=== PATIENT | female | born 1935 ===

== ENCOUNTER 2018-01-31 16:00 | Emergency (ER) | payer OTHER ==
[~2018-01-31] VITALS: Ht 152.4 cm; Wt 59.0 kg
[~2018-01-31 16:00] MED LIST: ASA325 M1 PO; CARDURA XL4 MG/BOTTL; COZAAR100 MG; DOLOGEN CAPLET1 EACH PO; DOXAZOSIN MESYLA4 MG; ENALAPRIL MALEA20 MG PO; GLIPIZIDE10 MG; GLIPIZIDE5 MG PO; HYDRALAZINE HCL25 MG; INTESTINEX680 MG PO; NIFEDIPINE30 MG/BOTT; PLAVIX75 MG; PLAVIX75 MG PO; TOPROL XL50 MG PO; VERAPAMIL ER180 MG
[2018-01-31] MEDS ORDERED: GLIPIZIDE ER5 MG (16:58)
== END 2018-01-31 22:49 | disposition home or self-care (01) ==
LOC: ER 16:00
DX: J22 Unspecified acute lower respiratory infection (principal); E11.65 Type 2 diabetes mellitus with hyperglycemia; J11.1 Influenza due to unidentified influenza virus with other respiratory manifestations

== ENCOUNTER 2020-02-01 04:55 | Emergency (ER) | payer OTHER ==
[~2020-02-01] VITALS: Ht 121.9 cm; Wt 72.6 kg
[~2020-02-01 04:55] MED LIST changes: +GLIPIZIDE ER5 MG
[2020-02-01] MEDS ORDERED: SIMVASTATIN10 MG (05:18)
[2020-02-01] MEDS ORDERED: CHILDREN'S ASPI81 MG (05:18)
[2020-02-01] MEDS ORDERED: PEPCID AC20 MG PO (11:25)
[2020-02-01] MEDS ORDERED: CIPRO500 MG PO (11:25)
[2020-02-01] MEDS ORDERED: INTESTINEX680 M1 PO (11:25)
== END 2020-02-01 12:14 | disposition home or self-care (01) ==
LOC: ER 04:55
DX: R10.31 Right lower quadrant pain (principal); R19.7 Diarrhea, unspecified; Z03.818 Encounter for observation for suspected exposure to other biological agents ruled out

== ENCOUNTER 2021-02-16 09:39 | Inpatient (IN) | payer OTHER ==
[~2021-02-16] VITALS: Ht 165.1 cm; Wt 70.3 kg
[~2021-02-16 09:39] MED LIST changes: +CHILDREN'S ASPI81 MG; +CIPRO500 MG PO; +INTESTINEX680 M1 PO; +PEPCID AC20 MG PO; +SIMVASTATIN10 MG
[2021-02-27] MEDS ORDERED: ISOSORBIDE MONO30 MG PO (09:15)
[2021-02-27] MEDS ORDERED: CLOPIDOGREL BIS75 MG PO (09:15)
[2021-02-27] MEDS ORDERED: LIPITOR40 MG PO (09:15)
[2021-02-27] MEDS ORDERED: NORVASC10 MG PO (09:15)
[2021-02-27] MEDS ORDERED: DOXAZOSIN MESYLA4 MG PO (09:15)
[2021-02-27] MEDS ORDERED: HYDRALAZINE HCL50 MG PO (09:15)
== END 2021-02-27 13:24 | disposition home or self-care (01) | DRG 690 ==
LOC: ER 09:39 → ICU-2 22:42 → ICU 02-21 05:04 → MEDJ 02-22 20:13
PROVIDERS: ADMIT Internal Medicine; ATTEND Internal Medicine
PROC: B24BZZZ Ultrasonography of Heart with Aorta (ICD-10-PCS; principal; 2021-02-17)
PROC: BW24ZZZ Computerized Tomography (CT Scan) of Chest and Abdomen (ICD-10-PCS; 2021-02-18)
PROC: 30233N1 Transfusion of Nonautologous Red Blood Cells into Peripheral Vein, Percutaneous Approach (ICD-10-PCS; 2021-02-20)
DX: N39.0 Urinary tract infection, site not specified (principal); I24.9 Acute ischemic heart disease, unspecified; Z16.12 Extended spectrum beta lactamase (ESBL) resistance; N17.8 Other acute kidney failure; R07.2 Precordial pain; D64.9 Anemia, unspecified; E11.9 Type 2 diabetes mellitus without complications; E87.5 Hyperkalemia; Z79.4 Long term (current) use of insulin; I10 Essential (primary) hypertension; E86.0 Dehydration; B96.20 Unspecified Escherichia coli [E. coli] as the cause of diseases classified elsewhere; I35.0 Nonrheumatic aortic (valve) stenosis; Z20.822 Contact with and (suspected) exposure to COVID-19; Z74.01 Bed confinement status

== ENCOUNTER 2021-05-23 09:40 | Inpatient (IN) | payer OTHER ==
[~2021-05-23] VITALS: Ht 152.4 cm; Wt 61.7 kg
[~2021-05-23 09:40] MED LIST changes: +CLOPIDOGREL BIS75 MG PO; +DOXAZOSIN MESYLA4 MG PO; +HYDRALAZINE HCL50 MG PO; +ISOSORBIDE MONO30 MG PO; +LIPITOR40 MG PO; +NORVASC10 MG PO
== END 2021-06-16 19:56 | disposition home or self-care (01) | DRG 64 ==
LOC: ER 09:40 → SURH 17:05 → ICU-2 17:05 → ICU 05-25 03:38 → SURH 05-30 11:54
PROVIDERS: ADMIT Internal Medicine; ATTEND Internal Medicine
PROC: 4A12X4Z Monitoring of Cardiac Electrical Activity, External Approach (ICD-10-PCS; principal; 2021-05-23)
PROC: 3E0F7SF Introduction of Other Gas into Respiratory Tract, Via Natural or Artificial Opening (ICD-10-PCS; 2021-05-23)
PROC: B246ZZZ Ultrasonography of Right and Left Heart (ICD-10-PCS; 2021-05-23)
PROC: BW38ZZZ Magnetic Resonance Imaging (MRI) of Head (ICD-10-PCS; 2021-05-23)
PROC: B020ZZZ Computerized Tomography (CT Scan) of Brain (ICD-10-PCS; 2021-05-23)
PROC: 8E0ZXY6 Isolation (ICD-10-PCS; 2021-05-25)
PROC: 02HV33Z Insertion of Infusion Device into Superior Vena Cava, Percutaneous Approach (ICD-10-PCS; 2021-05-26)
PROC: B020ZZZ Computerized Tomography (CT Scan) of Brain (ICD-10-PCS; 2021-05-29)
PROC: 3E0F7GC Introduction of Other Therapeutic Substance into Respiratory Tract, Via Natural or Artificial Opening (ICD-10-PCS; 2021-06-01)
PROC: B020ZZZ Computerized Tomography (CT Scan) of Brain (ICD-10-PCS; 2021-06-09)
PROC: 30243N1 Transfusion of Nonautologous Red Blood Cells into Central Vein, Percutaneous Approach (ICD-10-PCS; 2021-06-09)
PROC: BW24ZZZ Computerized Tomography (CT Scan) of Chest and Abdomen (ICD-10-PCS; 2021-06-10)
DX: I60.6 Nontraumatic subarachnoid hemorrhage from other intracranial arteries (principal); I21.4 Non-ST elevation (NSTEMI) myocardial infarction; N39.0 Urinary tract infection, site not specified; N17.8 Other acute kidney failure; I24.9 Acute ischemic heart disease, unspecified; E22.2 Syndrome of inappropriate secretion of antidiuretic hormone; I60.8 Other nontraumatic subarachnoid hemorrhage; E11.65 Type 2 diabetes mellitus with hyperglycemia; I25.10 Atherosclerotic heart disease of native coronary artery without angina pectoris; I11.0 Hypertensive heart disease with heart failure; D64.89 Other specified anemias; I35.0 Nonrheumatic aortic (valve) stenosis; I50.89 Other heart failure; B96.29 Other Escherichia coli [E. coli] as the cause of diseases classified elsewhere; E86.0 Dehydration; R60.1 Generalized edema; R09.02 Hypoxemia; Z79.84 Long term (current) use of oral hypoglycemic drugs; Z95.5 Presence of coronary angioplasty implant and graft; Z20.822 Contact with and (suspected) exposure to COVID-19
CPT/HCPCS: 70551